=== PATIENT | male | born 1975 | race Two or more races ===

== ENCOUNTER 2017-09-17 13:57 | Emergency (ER) | payer OTHER ==
[2017-09-17 14:21] VITALS: TEMP 98.4
--- NOTE | 2017-09-17 16:49 | C.PDOC ---
History Of Present Illness 42 y/o male presents to ED with c/o right sided chest pain worse with movement or inspiration for 3 days. Patient describes pain as sharp and denies being a smoker, abdominal pain, sob, nausea, leg pain or any other complaints at this time. Time Seen by Provider: 09/17/17 16:16 Chief Complaint (Nursing): Chest Pain History Per: Patient History/Exam Limitations: no limitations Onset/Duration Of Symptoms: Days Current Symptoms Are (Timing): Still Present Quality: Sharp Past Medical History Reviewed: Historical Data, Nursing Documentation, Vital Signs Vital Signs: Last Vital Signs Temp 98.4 F 09/17/17 14:15 Pulse 70 09/17/17 16:55 Resp 19 09/17/17 16:55 BP 96/56 L 09/17/17 16:55 Pulse Ox 99 09/17/17 16:55 - Medical History PMH: No Chronic Diseases Surgical History: No Surg Hx Family History: States: No Known Family Hx - Social History Hx Alcohol Use: Yes Hx Substance Use: No - Immunization History Hx Tetanus Toxoid Vaccination: No Hx Influenza Vaccination: No Hx Pneumococcal Vaccination: No Review Of Systems Except As Marked, All Systems Reviewed And Found Negative. Cardiovascular: Positive for: Chest Pain Physical Exam - Physical Exam Appears: Non-toxic, No Acute Distress Skin: Warm, Dry, No Rash Head: Atraumatic, Normacephalic Eye(s): bilateral: Normal Inspection Oral Mucosa: Moist Neck: Supple Chest: Tenderness (right sided chest wall) Cardiovascular: Rhythm Regular Respiratory: Normal Breath Sounds, No Rales, No Rhonchi, No Wheezing Gastrointestinal/Abdominal: Soft, No Tenderness, No Guarding, No Rebound Extremity: Normal ROM, No Pedal Edema, Capillary Refill (<2 seconds) Neurological/Psych: Oriented x3, Normal Speech, Normal Cognition ED Course And Treatment ECG: Interpreted By Me, Viewed By Me ECG Rhythm: Sinus Rhythm Rate From EC (BPM) O2 Sat by Pulse Oximetry: 96 (RA) Pulse Ox Interpretation: Normal Medical Decision Making Medical Decision Making: Assessment: Musculoskeletal chest pain chest wall pain - cxr - prel. reading nad patient with reproducible chest wall pain and no risk factors for heart disease and no risk factors for dvt/pe patient improved. will discharge home to follow up with pmd in 2 days Disposition Counseled Patient/Family Regarding: Studies Performed, Diagnosis - Disposition Referrals: [facility] [Outside] Disposition: HOME/ ROUTINE Disposition Time: 17:19 Condition: STABLE Additional Instructions: follow up with your doctor or medical clinic within 2 days call to make an appointment take medication as needed for pain return to ER if symptoms worsens or progress Prescriptions: Naproxen [Naprosyn] 500 mg PO BID PRN #16 tab PRN Reason: Pain, Moderate (4-7) Instructions: Costochondritis (DC) Forms: Gen Discharge Inst Yemeni, [facility] (Y[place]i) Print Language: MALAGASY - Clinical Impression Clinical Impression: Chest wall pain - Scribe Statement The provider has reviewed the documentation as recorded by the Gaelibrohit Bloom All medical record entries made by the Gaelibrohit were at my direction and personally dictated by me. I have reviewed the chart and agree that the record accurately reflects my personal performance of the history, physical exam, medical decision making, and the department course for this patient. I have also personally directed, reviewed, and agree with the discharge instructions and disposition.
[2017-09-17 17:07] VITALS: BP 96/56; PULSE 70; RESP 19
[2017-09-17 17:20] VITALS: O2SAT 96
--- NOTE | 2017-09-17 17:42 | RAD ---
Date of service: 09/17/2017 HISTORY: cough COMPARISON: Portable chest 04/09/2016. TECHNIQUE: Chest PA and lateral FINDINGS: LUNGS: No active pulmonary disease. PLEURA: No significant pleural effusion identified. No pneumothorax apparent. CARDIOVASCULAR: Normal. OSSEOUS STRUCTURES: No significant abnormalities. VISUALIZED UPPER ABDOMEN: Normal. OTHER FINDINGS: None. IMPRESSION: No interval acute cardiopulmonary disease appreciated.
--- NOTE | 2017-09-18 11:31 | CARD ---
APPROVED REPORT Date of service: 09/17/2017 EKG Measurement Heart [id number] <Conclusion> Normal sinus rhythm Incomplete right bundle branch block Borderline ECG
== END 2017-09-17 18:07 | disposition home or self-care (01) ==
LOC: C.ER 13:57
DX: R07.89 Other chest pain (principal)
CPT/HCPCS: 71046; 93005; 96372; 99285; J1885